=== PATIENT | male | born 1980 | race Two or more races ===

== ENCOUNTER → 2020-11-27 09:23 | Outpatient (CLI) | payer OTHER ==
[~2020-11-27 09:23] MED LIST: DOLOGEN CAPLET1 TAB PO; IBUPROFEN800 MG PO; ZOFRAN4 MG PO
== END | disposition home or self-care (01) ==
LOC: LAB 09:23
PROVIDERS: ATTEND Internal Medicine
DX: R53.83 Other fatigue (principal); E55.9 Vitamin D deficiency, unspecified; M79.10 Myalgia, unspecified site; R53.1 Weakness

== ENCOUNTER → 2020-12-19 10:05 | Outpatient (CLI) | payer OTHER | END | disposition home or self-care (01) | LOC: LAB 10:05 | DX: E03.8 Other specified hypothyroidism (principal) ==

== ENCOUNTER 2021-03-07 09:04 | Outpatient (CLI) | payer OTHER | END 2021-03-07 09:09 | disposition home or self-care (01) | LOC: LAB 09:04 | DX: M79.18 Myalgia, other site (principal); E55.9 Vitamin D deficiency, unspecified; R53.83 Other fatigue; R53.1 Weakness ==

== ENCOUNTER → 2021-03-14 12:38 | Outpatient (CLI) | payer OTHER | END | disposition home or self-care (01) | LOC: LAB 12:38 | PROVIDERS: ATTEND Internal Medicine | DX: M25.561 Pain in right knee (principal); M25.461 Effusion, right knee; M05.8A Other rheumatoid arthritis with rheumatoid factor of other specified site ==

== ENCOUNTER 2021-06-04 09:17 | Outpatient (CLI) | payer OTHER | END 2021-06-04 09:19 | disposition home or self-care (01) | LOC: LAB 09:17 | PROVIDERS: ATTEND Internal Medicine | DX: E55.9 Vitamin D deficiency, unspecified (principal); M79.10 Myalgia, unspecified site; R53.83 Other fatigue; M25.50 Pain in unspecified joint; R53.1 Weakness ==

== ENCOUNTER 2021-09-04 13:00 | Outpatient (CLI) | payer OTHER | END 2021-09-04 13:14 | disposition home or self-care (01) | LOC: MRI 13:00 | PROVIDERS: ATTEND Internal Medicine | DX: M25.561 Pain in right knee (principal) | CPT/HCPCS: 73721 ==

== ENCOUNTER 2021-09-05 14:40 | Outpatient (CLI) | payer OTHER | END 2021-09-05 14:47 | disposition home or self-care (01) | LOC: RAD 14:40 | PROVIDERS: ATTEND Orthopaedic Surgery Sports Medicine | DX: M17.11 Unilateral primary osteoarthritis, right knee (principal) ==

== ENCOUNTER 2021-09-13 09:09 | Outpatient (CLI) | payer OTHER | END 2021-09-13 09:14 | disposition home or self-care (01) | LOC: LAB 09:09 | PROVIDERS: ATTEND Internal Medicine | DX: E53.8 Deficiency of other specified B group vitamins (principal); E55.9 Vitamin D deficiency, unspecified; N40.0 Benign prostatic hyperplasia without lower urinary tract symptoms; M79.10 Myalgia, unspecified site; R53.83 Other fatigue; M25.50 Pain in unspecified joint; R53.1 Weakness ==

== ENCOUNTER 2022-01-05 08:25 | Outpatient (CLI) | payer OTHER | END 2022-01-05 08:27 | disposition home or self-care (01) | LOC: LAB 08:25 | PROVIDERS: ATTEND Internal Medicine | DX: E03.9 Hypothyroidism, unspecified (principal); E78.2 Mixed hyperlipidemia ==

== ENCOUNTER → 2022-01-14 11:04 | Outpatient (CLI) | payer OTHER | END | disposition home or self-care (01) | LOC: LAB 11:04 | PROVIDERS: ATTEND Internal Medicine | DX: E55.9 Vitamin D deficiency, unspecified (principal); M79.10 Myalgia, unspecified site; R53.83 Other fatigue; M25.50 Pain in unspecified joint; R53.1 Weakness ==

== ENCOUNTER → 2022-05-24 09:03 | Outpatient (CLI) | payer OTHER | END | disposition home or self-care (01) | LOC: LAB 09:03 | DX: M06.9 Rheumatoid arthritis, unspecified (principal); E03.9 Hypothyroidism, unspecified; R53.83 Other fatigue; E78.5 Hyperlipidemia, unspecified; E55.9 Vitamin D deficiency, unspecified ==

== ENCOUNTER → 2022-08-01 | Outpatient (CLI) | payer OTHER | END | disposition home or self-care (01) | LOC: RAD 14:31 | PROVIDERS: ATTEND Orthopaedic Surgery | DX: M25.561 Pain in right knee (principal); M25.562 Pain in left knee | CPT/HCPCS: 73721 ==

== ENCOUNTER 2023-11-24 08:57 | Outpatient (CLI) | payer OTHER ==
[2023-11-24 10:38] LABS: HEMATOCRIT 44.6 % (39.0-48.0); HEMOGLOBIN 15.4 g/dL (13-16.00); MEAN CORPUSCULAR HEMOGLOBIN 33.2 pg (27.00-32.0); MEAN CORPUSCULAR HGB CONC 34.6 g/dl (32.0-36.0); PLATELET COUNT 208 K/uL (150-450); RED BLOOD COUNT 4.65 M/uL (4.00-6.00); RED CELL DISTRIBUTION WIDTH 12.9 % (11.5-14.5)
[2023-11-24 10:41] LABS: ERYTHROCYTE SEDIMENTATION RATE < 1 mm/hr
[2023-11-24 11:11] LABS: CALCIUM 9.2 mg/dL (8.5-10.1); CREATININE SERUM 1.34 mg/dL (0.70-1.30); GFR 58.74; POTASSIUM 4.08 mEq/L (3.5-5.1); URIC ACID 6.7 mg/dL (3.5-8.5)
[2023-11-24 11:14] LABS: ALBUMIN 4.1 gm/dL (3.4-5.0); BILIRUBIN TOTAL 0.7 mg/dL (0.3-1.2); BILIRUBIN,CONJUGATED 0.16 mg/dL (0.0-0.2); BILIRUBIN,UNCONJUGATED 0.54 mg/dL (0.0-0.6); TOTAL PROTEIN 7.5 gm/dL (6.4-8.2)
== END 2023-11-24 09:10 | disposition home or self-care (01) ==
LOC: LAB 08:57
PROVIDERS: ATTEND Internal Medicine
DX: R74.8 Abnormal levels of other serum enzymes (principal); M25.50 Pain in unspecified joint; M35.9 Systemic involvement of connective tissue, unspecified; K90.41 Non-celiac gluten sensitivity

== ENCOUNTER 2024-04-16 08:19 | Outpatient (CLI) | payer OTHER ==
[2024-04-16 08:55] LABS: URINE APPEARANCE Clear; URINE BILIRRUBIN Negative (NEGATIVE); URINE BLOOD Negative; URINE COLOR Yellow; URINE GLUCOSE Negative (NEGATIVE); URINE KETONE Negative (NEGATIVE); URINE LEUKOCYTE Negative; URINE NITRATE Negative; URINE PROTEIN Negative (NEGATIVE); URINE UROBILINOGEN 0.2 E.U./dl
[2024-04-16 08:56] LABS: HEMATOCRIT 44.2 % (39.0-48.0); HEMOGLOBIN 15.4 g/dL (13-16.00); MEAN CORPUSCULAR HEMOGLOBIN 32.8 pg (27.00-32.0); MEAN CORPUSCULAR HGB CONC 34.9 g/dl (32.0-36.0); PLATELET COUNT 235 K/uL (150-450); RED BLOOD COUNT 4.71 M/uL (4.00-6.00); RED CELL DISTRIBUTION WIDTH 12.6 % (11.5-14.5)
[2024-04-16 09:07] LABS: URINE BACTERIA 0 uL (0.0-1933); URINE RBC 0.4 uL (0.0-20.8); URINE WBC 0.6 uL (0.0-23.2)
[2024-04-16 09:14] LABS: ERYTHROCYTE SEDIMENTATION RATE < 1 mm/hr
[2024-04-16 10:00] LABS: BILIRUBIN TOTAL 0.95 mg/dL (0.3-1.2); BILIRUBIN,CONJUGATED 0.23 mg/dL (0.0-0.2); BILIRUBIN,UNCONJUGATED 0.72 mg/dL (0.0-0.6); CALCIUM 9.3 mg/dL (8.5-10.1); CREATININE SERUM 1.27 mg/dL (0.70-1.30); GFR 62.19; POTASSIUM 4.12 mEq/L (3.5-5.1); TOTAL PROTEIN 7.5 gm/dL (6.4-8.2)
== END 2024-04-16 08:21 | disposition home or self-care (01) ==
LOC: LAB 08:19 → RAD 08:19
PROVIDERS: ATTEND Internal Medicine
DX: R05.9 Cough, unspecified (principal); R74.8 Abnormal levels of other serum enzymes; M25.50 Pain in unspecified joint; M35.9 Systemic involvement of connective tissue, unspecified

== ENCOUNTER 2024-11-18 06:13 | Outpatient (CLI) | payer OTHER ==
[2024-11-18 07:21] LABS: BASO % 0.5 % (0.1-1.2); EOS # 0.09 (0.04-0.54); EOS % 1.2 % (0.7-7.0); LYMPH # 1.13 (1.18-3.74); LYMPH % 14.7 % (19.3-53.1); MEAN PLATELET VOLUME 10.70 fl (9.4-12.4); MONO # 0.60 (0.24-0.82); MONO % 7.8 % (4.7-12.5); NEUT # 5.81 (1.56-6.13); NEUT % 75.5 % (34.0-71.1); RED CELL DISTRIBUTION WIDTH 12.0 % (11.6-14.4)
[2024-11-18 07:24] LABS: URINE APPEARANCE Clear; URINE BILIRRUBIN Negative (NEGATIVE); URINE BLOOD Negative; URINE COLOR Yellow; URINE GLUCOSE Negative (NEGATIVE); URINE KETONE Negative (NEGATIVE); URINE LEUKOCYTE Negative; URINE NITRATE Negative; URINE PROTEIN Negative (NEGATIVE); URINE UROBILINOGEN 0.2 E.U./dl
[2024-11-18 07:26] LABS: URINE BACTERIA 5.9 uL (0.0-1933)
[2024-11-18 07:30] LABS: ERYTHROCYTE SEDIMENTATION RATE < 1 mm/hr (0-15)
[2024-11-18 07:36] LABS: URINE CAST 0.00 uL (0.0-1.40); URINE EPITHELIAL CELLS 0.3 uL (0.0-38.8); URINE RBC 0.2 uL (0.0-20.8); URINE WBC 0 uL (0.0-23.2)
[2024-11-18 07:57] LABS: ALT/SGPT 23.0 U/L (12-78); AST/SGOT 20.0 U/L (15-37); BILIRUBIN TOTAL 0.88 mg/dL (0.3-1.2); BUN CREA RATIO 13.0 (7.0-25.0); CHOL HDL RATIO 2.1 (0-5.0); CREATININE SERUM 1.3 mg/dL (0.70-1.30); GFR 60.54; GLOBULINA 3.6 G/DL (2.4-3.5); GLUCOSE FASTING 106.0 mg/dL (65-100); HDL 60.0 mg/dl (40-60); LDL 58.0 mg/dl (0-130); OSMOLALITY SERUM 281.0 MOSM/KG (275-295); PROSTATIC SPECIFIC ANTIGEN 0.236 NG/ML (0.010-4.00); T4 FREE 0.84 NG/ML (0.76-1.46); TSH 1.18 uIU/mL (0.358-3.74); VLDL 6.0 (0-39)
[2024-11-18 10:25] LABS: FOLIC ACID 14.2 ng/ml (4.78-20); VITAMIN D3 25 HYDROXY 36.32 ng/ml (30-120)
== END 2024-11-18 06:19 | disposition home or self-care (01) ==
LOC: LAB 06:13
DX: E03.4 Atrophy of thyroid (acquired) (principal); I11.9 Hypertensive heart disease without heart failure; D64.9 Anemia, unspecified; N40.0 Benign prostatic hyperplasia without lower urinary tract symptoms; E78.00 Pure hypercholesterolemia, unspecified; M06.9 Rheumatoid arthritis, unspecified; E55.9 Vitamin D deficiency, unspecified; E53.8 Deficiency of other specified B group vitamins; E11.69 Type 2 diabetes mellitus with other specified complication; D52.9 Folate deficiency anemia, unspecified

== ENCOUNTER 2025-02-07 06:33 | Outpatient (CLI) | payer OTHER ==
[2025-02-07 07:08] LABS: BASO % 0.4 % (0.1-1.2); EOS # 0.05 (0.04-0.54); EOS % 0.7 % (0.7-7.0); LYMPH # 1.63 (1.18-3.74); LYMPH % 21.5 % (19.3-53.1); MEAN PLATELET VOLUME 10.30 fl (9.4-12.4); MONO # 0.55 (0.24-0.82); MONO % 7.3 % (4.7-12.5); NEUT # 5.30 (1.56-6.13); NEUT % 69.8 % (34.0-71.1); RED CELL DISTRIBUTION WIDTH 12.3 % (11.6-14.4)
[2025-02-07 07:09] LABS: URINE APPEARANCE Clear; URINE BILIRRUBIN Negative (NEGATIVE); URINE BLOOD Negative; URINE COLOR Yellow; URINE GLUCOSE Negative (NEGATIVE); URINE KETONE Negative (NEGATIVE); URINE LEUKOCYTE Negative; URINE NITRATE Negative; URINE PROTEIN Negative (NEGATIVE); URINE UROBILINOGEN 0.2 E.U./dl
[2025-02-07 07:26] LABS: URINE BACTERIA 1.1 uL (0.0-1933); URINE CAST 0.00 uL (0.0-1.40); URINE EPITHELIAL CELLS 0.4 uL (0.0-38.8); URINE RBC 0.2 uL (0.0-20.8); URINE WBC 0.4 uL (0.0-23.2)
[2025-02-07 08:24] LABS: ALT/SGPT 21.0 U/L (12-78); AST/SGOT 20.0 U/L (15-37); BILIRUBIN TOTAL 0.74 mg/dL (0.3-1.2); BUN CREA RATIO 11.0 (7.0-25.0); CHOL HDL RATIO 2.4 (0-5.0); CREATININE SERUM 1.23 mg/dL (0.70-1.30); GFR 64.22; GLOBULINA 3.5 G/DL (2.4-3.5); GLUCOSE FASTING 107.0 mg/dL (65-100); HDL 64.0 mg/dl (40-60); LDL 77.0 mg/dl (0-130); OSMOLALITY SERUM 282.0 MOSM/KG (275-295); T4 FREE 0.86 NG/ML (0.76-1.46); TSH 1.41 uIU/mL (0.358-3.74); VLDL 10.0 (0-39)
[2025-02-07 09:49] LABS: T3 TOTAL 0.782 ng/ml (0.846-2.02); VITAMIN D3 25 HYDROXY 28.94 ng/ml (30-120)
== END 2025-02-07 06:45 | disposition home or self-care (01) ==
LOC: LAB 06:33
DX: E03.9 Hypothyroidism, unspecified (principal); E11.9 Type 2 diabetes mellitus without complications